=== PATIENT | female | born 1955 | race Caucasian/White ===

== ENCOUNTER 2018-02-11 13:07 | Emergency (ER) | payer BC ==
[2018-02-11] MEDS ORDERED: Midazolam* 1 MG/ML 5 ML VIAL (5 MG) SLOW PUSH ONE (13:56)
[2018-02-11] MEDS ORDERED: fentaNYL* 50 MCG/ML 2 ML VIAL (100 MCG VIAL) IV SLOW PU ONE (13:56)
--- NOTE | 2018-02-11 14:00 | ED ---
Upper Extremity Pain - HPI Summary HPI Summary: Patient is a 62-year-old female who presents emergency department for a right shoulder injury. 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 Patient states she is usually able to reduce her shoulder herself but today was unable to. She states she was gardening just prior to arrival when she reached behind her and her right shoulder subluxed. Symptoms are mild in severity. Reports associated symptoms of mild paresthesias. Moving and touching shoulder makes symptoms worse. Nothing makes symptoms better. No significant past medical history. Last ate at 10:30 AM - History of Current Complaint Chief Complaint: Rebeka Stated Complaint: RIGHT SHOULDER PAIN Time Seen by Provider: 02/11/18 13:23 Hx Obtained From: Patient - Allergies/Home Medications Allergies/Adverse Reactions: Allergies Allergy/AdvReac Type Severity Reaction Status Date / Time Sulfa (Sulfonamide Allergy Rash Verified 02/11/18 13:12 Antibiotics) Home Medications: Home Medications Aspirin EC TAB* [Ecotrin EC Low Dose 81 MG*] 81 mg PO DAILY 02/11/18 [History Confirmed 02/11/18] FLUoxetine CAP* [PROzac CAP*] 10 mg PO DAILY 02/11/18 [History Confirmed ] Levothyroxine TAB* [Synthroid TAB*] 75 mcg PO DAILY 02/11/18 [History Confirmed 02/11/18] Multivitamins/Minerals TAB* [Theragran/minerals TAB*] 1 tab PO DAILY 02/11/18 [ History Confirmed 02/11/18] PMH/Surg Hx/FS Hx/Imm Hx Previously Healthy: Yes Infectious Disease History: No Infectious Disease History: Denies: Traveled Outside the [place] in Last 30 Days - Social History Lives: With Family Alcohol Use: Rare Substance Use Type: Reports: None Smoking Status (MU): Never Smoked Tobacco Review of Systems Positive: Other - right shoulder pain Positive: Paresthesia. Negative: Weakness, Numbness All Other Systems Reviewed And Are Negative: Yes Physical Exam Triage Information Reviewed: Yes Vital Signs On Initial Exam: Initial Vitals Temp Pulse Resp BP Pulse Ox 96.6 F 78 14 136/68 99 02/11/18 13:13 02/11/18 13:13 02/11/18 13:13 02/11/18 13:13 02/11/18 13:13 Vital Signs Reviewed: Yes Appearance: Positive: Pain Distress - Pt. sitting in chair holding her right arm. Appears uncomfortable but nontoxic. Skin: Positive: Warm, Dry Head/Face: Positive: Normal Head/Face Inspection Eyes: Positive: Normal Neck: Positive: Supple Musculoskeletal: Positive: Other - Good palpable radial pulse on the right. Obvious deformity noted to the shoulder. Exam is limited. Psychiatric: Positive: Affect/Mood Appropriate Procedures - Joint Reduction Right Joint Reduction Site: shoulder (R) Conscious Sedation: Yes - 50 mics fentanyl, 5 mg Versed Reduction Attempts: 1 Pre-Procedure NV Exam: Yes Post Joint Reduction Film: joint reduced Diagnostics - Vital Signs Vital Signs Temp Pulse Resp BP Pulse Ox 02/11/18 13:13 96.6 F 78 14 136/68 99 - Laboratory Lab Statement: Any lab studies that have been ordered have been reviewed, and results considered in the medical decision making process. Course/Dx - Course Course Of Treatment: Pt. presenting with a right shoulder subluxation confirmed by xray. No fx seen on xray. Conscious sedation was performed by Dr. Patel using fentanyl and versed. Shoulder was easily reduced with one attempted. Sling placed. Post reduction film shows reduction of joint without fracture, reading per radiology. Pt. tolerated procedure well. Upon discharged pt. is awake and talking and requesting to go home. Advised to call ortho. to schedule a follow up appointment. To keep sling in place. Ice. Tylenol or Motrin for pain as directed. Pt. understands and agrees with plan. After pt. was discharged I realized post sedation discharged instructions were not given. I attempted to call pt at [phone] with no answer. Voicemail was left advising her to rest, no driving, and to drink plenty of water. Will return call with questions. - Diagnoses Differential Diagnosis/HQI/PQRI: Positive: Fracture (Closed), Strain, Sprain Provider Diagnoses: Shoulder dislocation Discharge - Sign-Out/Discharge Documenting (check all that apply): Discharge/Admit/Transfer - Discharge Plan Condition: Good Disposition: HOME Patient Education Materials: Shoulder Dislocation (ED) Referrals: Karlie Cheung MD [Primary Care Provider] - Mo Felix MD [Medical Doctor] - Additional Instructions: Call Dr. Murphy's office today to schedule an appointment Keep sling in place Ice intermittently Tylenol or Motrin for pain as directed Return to ER if symptoms change or worsen - Billing Disposition and Condition Condition: GOOD Disposition: Home
--- NOTE | 2018-02-11 14:42 | RAD ---
Indication: Dislocation. 4 views of the right shoulder demonstrates anterior inferior dislocation of the right humeral head. No fracture is noted. IMPRESSION: Anterior inferior dislocation of the right humeral head.
--- NOTE | 2018-02-11 15:36 | RAD ---
Indication: Postreduction anterior dislocation RIGHT shoulder. Comparison: Prereduction exam of the same date. Technique: AP view RIGHT shoulder REPORT AND IMPRESSION: Normal alignment of the glenohumeral joint in the AP projection however full assessment requiring an orthogonal view. No fracture visualized within limits of a single AP projection. Unremarkable soft tissue contours.
[2018-02-11 16:10] VITALS: BP 124/67
== END 2018-02-11 16:15 | disposition home or self-care (01) ==
LOC: ED 13:07
DX: M24.411 Recurrent dislocation, right shoulder (principal); Z88.0 Allergy status to penicillin
CPT/HCPCS: 23650; 99285

== ENCOUNTER 2018-11-23 10:17 | Day surgery (SDC) | payer BC ==
--- NOTE | 2018-10-31 14:27 | HP ---
PREOPERATIVE HISTORY AND PHYSICAL: DATE OF SURGERY: 11/09/18 DATE OF OFFICE VISIT: 10/27/18 ATTENDING SURGEON: Dr. Alida Payne.* (DICTATED BY BASHIR SOLOMON) PROCEDURE: Right shoulder arthroscopic labral repair, decompression, debridement, and possible subpectoral biceps tenodesis. CHIEF COMPLAINT: Right shoulder pain. HISTORY OF PRESENT ILLNESS: Briseida is a 63-year-old female who presents to the clinic for right shoulder pain due to a labral tear and biceps tendonitis. She has failed conservative measures and therefore agreed to undergo a right shoulder arthroscopic labral repair, decompression, debridement, and possible subpectoral biceps tenodesis with Dr. Payne on 11/09/18. PAST MEDICAL HISTORY: Osteoarthritis, thyroid cancer, depression, anxiety, GERD. PAST SURGICAL HISTORY: Thyroidectomy. The patient become agitated with anesthesia. MEDICATIONS: 1. Prozac 10 mg 1 cap in the morning. 2. Levothyroxine 100 mcg 1 daily. 3. Multivitamin 1 daily. 4. Calcium 600 plus vitamin D 1 daily. 5. Probiotic 1 daily. ALLERGIES: SULFA. FAMILY HISTORY: Positive for hypertension, stroke, and Parkinson's. She denies family history of DVT or PE. SOCIAL HISTORY: She lives with her spouse. She is retired. She is a former smoker, quit in 1977. She reports occasional alcohol consumption. She is right hand dominant. REVIEW OF SYSTEMS: A 14-point review of systems was reviewed with the patient. Positive for current complaint, otherwise negative. Denies fever, chills, chest pain, shortness of breath, history of DVT or PE, history of bleeding disorder. PHYSICAL EXAMINATION GENERAL: A 63-year-old well-developed, well-nourished female, in no acute distress. VITAL SIGNS: Height 68, weight 171. Pulse 76, blood pressure 118/74, temperature 98.0, BMI 26.0. HEENT: Normocephalic, atraumatic. PERRLA. Throat clear. NECK: Supple. PULMONARY: Lungs are clear to auscultation bilaterally. No wheezing, rhonchi, or rales. CARDIO: Regular rate and rhythm. S1, S2. No murmurs, gallops, or rubs. No edema. ABDOMEN: Positive bowel sounds. Soft, nontender. NEUROLOGIC: Alert and oriented x3. Cranial nerves grossly intact. MUSCULOSKELETAL: Right upper extremity: Skin is intact. No warmth or erythema. Nontender to palpation. Forward flexion and abduction to 160, external rotation to 65, internal rotation to T10. +5/5 strength to rotator cuff testing with mild discomfort. Positive impingement, Speed, Hawkin-Julian, [place]. +2 radial pulses. Sensation intact to light touch distally. STUDIES: MRI revealed Hill-Sachs deformity, tearing of the anterior labrum, mild bursitis, and degenerative changes of the superior labrum with tearing. IMPRESSION: Right shoulder labral tear and biceps tendonitis as well as impingement. PLAN: The patient is scheduled to undergo a right shoulder arthroscopic labral repair, decompression, debridement, and possible subpectoral biceps tenodesis with Dr. Payne on 11/09/18. She will follow up 10 to 14 days postop for followup and suture removal. Percocet will be used for postop pain management. BASHIR SOLOMON [id number]/[facility] #: [id number] MTDD
[~2018-11-23 10:17] MED LIST: Buffered Lidocaine 1% SYRIN* 1 ML/SYRINGE INTRADERM ONE; Dexamethasone IV* 4 MG/ML 1 ML (4 MG) IV SLOW PU ONE; Famotidine IV* 10 MG/ML 2 ML (20 mg) IV ONE; Lactated Ringers 1000 ML Bag* 1,000 ML IV SCH
[2018-11-23] MEDS ORDERED: Dexamethasone IV* 4 MG/ML 1 ML (4 MG) ONE (10:21)
[2018-11-23] MEDS ORDERED: ceFAZolin 2 GM in NS PREMIX(*) 2 GM/100 ML BAG IVPB ONE (10:21)
[2018-11-23] MEDS ORDERED: Famotidine IV* 10 MG/ML 2 ML (20 mg) ONE (10:21)
[2018-11-23] MEDS ORDERED: Rocuronium* 10 MG/ML VIAL ONE (10:35)
[2018-11-23] MEDS ORDERED: fentaNYL* 50 MCG/ML 2 ML VIAL (100 MCG VIAL) ONE (10:35)
[2018-11-23] MEDS ORDERED: Midazolam* 1 MG/ML 2 ML VIAL (2 MG) ONE (10:36)
[2018-11-23] MEDS ORDERED: Propofol* 10 MG/ML 20 ML BTL ONE (10:42)
[2018-11-23] MEDS ORDERED: Lactated Ringers 1000 ML Bag* 1,000 ML IV SCH ×2 (11:00)
[2018-11-23] MEDS ORDERED: Lidocaine 1%* 5 ML VIAL ONE (12:22)
[2018-11-23] MEDS ORDERED: ROPIVACAINE 5 MG/ML 30 ML BTL (0.5%) ONE (12:22)
[2018-11-23] MEDS ORDERED: DiMENhydriNATE IV* 50 MG/ML VIAL IV PUSH PRN (12:43)
[2018-11-23] MEDS ORDERED: HYDROcodone/ACETAMIN 5-325 MG* 1 TAB PO PRN (12:43)
[2018-11-23] MEDS ORDERED: Ketorolac INJ* 30 MG/ML 1 ML VIAL IV PRN (12:43)
[2018-11-23] MEDS ORDERED: PROCHLORPERAZINE INJ 5 MG/ML 2 ML VIAL IV PRN (12:43)
[2018-11-23] MEDS ORDERED: Naloxone* 0.4 MG/ML 1 ML VIAL IV PRN (12:43)
[2018-11-23] MEDS ORDERED: Acetaminophen TAB* 325 MG PO PRN (12:43)
[2018-11-23] MEDS ORDERED: fentaNYL* 50 MCG/ML 2 ML VIAL (100 MCG VIAL) IV PRN (12:43)
[2018-11-23] MEDS ORDERED: Ropivacaine* 2 MG/ML 20 ML VIAL (0.2%) ONE (12:59)
[2018-11-23] MEDS ORDERED: Ondansetron INJ* 2 MG/ML VIAL ONE (14:41)
[2018-11-23] MEDS ORDERED: Ketorolac INJ* 30 MG/ML 1 ML VIAL ONE (16:35)
[2018-11-23 17:01] VITALS: BP 137/84
--- NOTE | 2018-11-24 01:47 | OP ---
CC: PCP, Karlie Cheung MD * DATE OF OPERATION: 11/23/18 - [facility] DATE OF : 57 SURGEON: Alida Payne MD SERVICE PORTER: BASHIR Masters ANESTHESIOLOGIST: Dr. Oliver. ANESTHESIA: General interscalene block. PRE-OP DIAGNOSIS: Right shoulder recurrent instability with possible impingement. POST-OP DIAGNOSIS: Right shoulder recurrent instability with possible impingement. OPERATIVE PROCEDURE: Right shoulder arthroscopy with: 1. Extensive glenohumeral debridement including chondroplasty. 2. Anterior labrum repair. 3. Subpectoral biceps tenodesis. COMPLICATIONS: None. ESTIMATED BLOOD LOSS: Minimal. INDICATION: Briseida Cruz is a 63-year-old female with persistent recurrent instability that occurred over a year ago. She has failed conservative management. She has elected to proceed with surgical treatment. This has been going on for several decades. She has had numerous dislocations, then they stopped, and then she went to see someone at a different facility who did not really explain what was going on with her. She continues to feel some instability. Initially, she was feeling pain and having impingement related symptoms. At today's visit, she has not had any impingement related pain, but has mostly instability and pain associated with that, and therefore, the decompression was not done. DESCRIPTION OF PROCEDURE: The patient was greeted in the preoperative area by the attending surgeon. The correct extremity was marked and consent was confirmed. The patient was brought back to the operative suite. She was placed in supine position on the operative table. The patient underwent interscalene nerve block by the anesthesiologist. She was brought back to the operating suite where she was placed in supine position on the operating table. She underwent general anesthesia and endotracheal intubation, after which she was placed in the left lateral decubitus position with all bony prominences padded. She was secured with a pegboard. The right shoulder was then prepped and draped in the usual sterile fashion beginning with chlorhexidine soap, scrub, and alcohol wipe. Lateral ALIN was positioned, the right shoulder was draped unsterile with 10 pounds of traction. The patient was obviously dislocated and subluxed anteriorly. After appropriate surgical pause indicating side, site, and procedure, and administration of antibiotics, the 11 blade was used to make a posterolateral incision. The scope was introduced into the joint and the joint was examined. The head was obviously subluxed anteriorly. There was a moderate-sized Hill- Sachs deformity. There were small areas of grade 2 changes of the glenoid with unstable flaps. There was evidence that labrum was torn and not exactly functional. The superior labrum was also torn with some tendonitis and synovitis of the biceps. The rotator cuff appeared to be intact. The inferior recess appeared to be intact. There was fraying of posterior labrum. The lower anterior portal was made and 8.5 mm cannula was placed through the working portal. The biceps was then tenotomized for later tenodesis and a second cannula was placed in the superior aspect of the interval which was the suture _ of the portal. After this was done, the lateral ALIN was positioned to show that there was positive drive-through sign . The labrum was then gently elevated and the bony areas were rasped using the rasp as well as the soft tissues were rasped as well to allow for capsulolabral repair. After this was done and bony bleeding was evident, anchor placement began. Beginning at the 5: 30 position, a Bioraptor was placed with excellent purchase. This was then passed in a horizontal mattress configuration and tied down. This helped to eliminate drive-through sign. The second anchor was placed around the 4:30 position and passed in a simple fashion. The third one was placed in the 3:30 position and again passed in simple fashion. ____ throughout the labrum. The shoulder was taken off tension and the head was found to be sitting more centrally with no anterior subluxation. Final images were obtained. The wounds were copiously irrigated. Attention was directed to the biceps. The bed was airplaned to her right side. The anterior aspect of the shoulder was prepped again using the ChloraPrep. A 15 blade was used to make incision in line with the biceps tendon. The soft tissue was carefully dissected. The biceps was brought through the wound. The groove was then prepared in usual fashion with electrocautery device, red ball rasp, and osteotome to get a bony bleeding bed. The Q-Fix was then placed with excellent purchase. The sutures were then passed in a Jeffy-Edward type configuration and the biceps was shuttled back to the wound. This was then secured. The wounds were then copiously irrigated with sterile saline. Sterile dressings were applied. The portals were closed with 3-0 nylon. Cryo/Cuff and UltraSling were placed. She was awoken from anesthesia and transferred to the PACU in stable condition. POSTOPERATIVE PLAN: She will be discharged on pain medications. DVT prophylaxis was considered but deferred due to no previous personal or family history. I will see the patient back in 10 to 14 days. [id number]/[facility] #: [id number] [facility] HOSPITALKyra
== END 2018-11-23 17:05 | disposition home or self-care (01) ==
LOC: OR 10:17
PROVIDERS: ATTEND Orthopaedic Surgery
DX: M24.411 Recurrent dislocation, right shoulder (principal); Z53.9 Procedure and treatment not carried out, unspecified reason
CPT/HCPCS: J0690; J1100; J1885; J2250; J2405; J2704; J2795; J3010